=== PATIENT | male | born 2000 | race Asian ===

== ENCOUNTER 2018-02-15 22:48 | Emergency (ER) | payer BC, OTHER ==
[~2018-02-15] VITALS: Ht 198.1 cm; Wt 91.5 kg
[2018-02-15 22:51] VITALS: TEMP 36.9; Ht 198.1 cm; Wt 91.5 kg
--- NOTE | 2018-02-15 22:56 | EMERGENCY ROOM VISIT NOTE ---
History Report prepared by Lamar: Ena Calvillo Under the Supervision of: Dr. Johnson Cueto D.O. First contact with patient: 22:49 Chief Complaint: SHOULDER PAIN Stated Complaint: SHOULDER INJURY History of Present Illness The patient is a 17 year old male who presents to the Emergency Room with complaints of persistent right shoulder pain that occurred prior to arrival. He reports that while he was playing basketball, he reached up, and dislocated his shoulder. The patient states that he has severe pain when he tries to move his shoulder. He denies ever dislocating his shoulder before. Source of History: patient Onset: prior to arrival Position: shoulder (right) Quality: other (shoulder pain) Timing: other (persistent) Note: Associated symptoms: right shoulder dislocation Review of Systems See HPI for pertinent positives & negatives. A total of 10 systems reviewed and were otherwise negative. Past Medical & Surgical Medical Problems: (1) No Known Active Medical Problems Family History Patient reports no known family medical history. Patient does not report any pertinent family history. Social History Smoking Status: Never Smoker Smokeless Tobacco Use: No Alcohol Use: none Drug Use: none Marital Status: single Housing Status: lives with roommate Occupation Status: [employer] student Current/Historical Medications No Active Prescriptions or Reported Meds Allergies Coded Allergies: No Known Allergies (Unverified , 02/15/18) Physical Exam Vital Signs Date Time Temp Pulse Resp B/P (MAP) Pulse Ox O2 Delivery O2 Flow Rate FiO2 02/15/18 23:32 113 16 114/96 98 Room Air 02/15/18 22:51 36.9 120 18 136/86 96 Room Air Physical Exam GENERAL: Patient is awake, alert, and in no acute distress. Patient is very anxious and uncomfortable appearing. EYES: The conjunctivae are clear. The pupils are round and reactive. EARS, NOSE, MOUTH AND THROAT: The nose is without any evidence of any deformity. Mucous membranes are moist tongue is midline NECK: The neck is nontender and supple. RESPIRATORY: Normal respiratory effort is noted there is no evidence of wheezing rhonchi or rales CARDIOVASCULAR: Regular rate and rhythm noted there no murmurs rubs or gallops normal S1 normal S2 GASTROINTESTINAL: The abdomen is soft. Bowel sounds are present in all quadrants. Abdomen is nontender BACK: No midline tenderness or or step-off noted range of motion in flexion extension as well as rotation no signs of muscle spasm noted MUSCULOSKELETAL/EXTREMITIES: Right shoulder is held in abduction. There is a glenoid step-off with anterior fullness noted consistent with anterior dislocation. SKIN: There is no obvious evidence of any rash. There are no petechiae, pallor or cyanosis noted. NEUROLOGIC: Patient is awake alert and oriented x3 Medical Decision & Procedures ER Provider Diagnostic Interpretation: Right shoulder x-ray results per my interpretation: Post reduction view reveals slight hill- Sachs reduction noticed, normal anatomical alignment noted, and no acute disease. Medications Administered Medications (Trade) Dose Ordered Sig/Teodoro Route Start Time Stop Time Status Last Admin Dose Admin Acetaminophen (Tylenol Tab) 1,000 mg NOW STAT PO 02/15/18 23:23 02/15/18 23:24 DC 02/15/18 23:30 1,000 MG ED Course 2249: The patient was evaluated in room B2. A complete history and physical examination were performed. 2323:Ordered Tylenol Tab 1000mg PO. 2325: Upon reevaluation, the patient is feeling significantly better. I discussed the results and treatment plan with him. He verbalized agreement of the treatment plan. The patient was discharged home. Medical Decision Prior records reviewed and summarized above. Triage Nursing notes reviewed and agree them. Additional history obtained from EMS report. The patient's history was concerning for traumatic injury. Differential diagnosis: Etiologies such as fracture, dislocation, neurovascular compromise, compartment syndrome, soft tissue injury, as well as others were entertained. The patient is a 17-year-old male who presented to the emergency department after dislocating his right shoulder. The patient was in significant pain in his history and physical exam appear to be consistent with a relatively atraumatic shoulder dislocation. The patient had reduction of the shoulder done in the emergency department. Postreduction views did not show continued dislocation. The patient was reevaluated multiple times. He was feeling much better on subsequent reevaluation. He was encouraged to follow-up with orthopedic physician as soon as possible. I also recommended he continue Motrin and Tylenol as directed for pain and return to the emergency department immediately if symptoms change worsen or the need arises. Medication Reconcilliation Current Medication List: was personally reviewed by me Blood Pressure Screening Patient's blood pressure: Normal blood pressure Blood pressure disposition: Did not require urgent referral Impression Primary Impression: Anterior dislocation of right shoulder Scribe Attestation The scribe's documentation has been prepared under my direction and personally reviewed by me in its entirety. I confirm that the note above accurately reflects all work, treatment, procedures, and medical decision making performed by me. Departure Information Dispostion Home / Self-Care Prescriptions No Active Prescriptions or Reported Meds Forms HOME CARE DOCUMENTATION FORM, IMPORTANT VISIT INFORMATION Patient Instructions My [facility] Additional Instructions Continue using Motrin and Tylenol as directed for pain. Call the orthopedic physician in the morning to schedule a follow-up appointment. Avoid any strenuous activity.
[2018-02-15] MEDS ORDERED: ACETAMINOPHEN 500 MG TAB PO STA (23:23)
[2018-02-15 23:32] VITALS: BP 114/96; PULSE 113; O2SAT 98
--- NOTE | 2018-02-16 06:18 | DIAGNOSTIC IMAGING REPORT ---
R SHOULDER MIN 2 VIEWS ROUTINE CLINICAL HISTORY: post reduction COMPARISON: None. DISCUSSION: The bones and joint spaces appear intact. There is no evidence of fracture, dislocation or bony disease. There is no evidence for soft tissue swelling. IMPRESSION: Anatomic alignment post closed reduction The above report was generated using voice recognition software. It may contain grammatical, syntax or spelling errors. Electronically signed by: Liam Phipps M.D. 02/16/2018 6:17 AM Dictated Date/Time: 02/16/2018 6:17 AM
== END 2018-02-15 23:37 | disposition home or self-care (01) ==
LOC: EDBD 22:48 → C.EDB 22:53
DX: S43.011A Anterior subluxation of right humerus, initial encounter (principal); X50.0XXA Overexertion from strenuous movement or load, initial encounter; Y93.67 Activity, basketball